=== PATIENT | female | born 2000 | race Native Hawaiian/Other Pacific Islander ===

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

== ENCOUNTER → 2022-10-31 | Outpatient (CLI) | payer MEDICAID ==
--- NOTE | 2022-10-31 14:54 | US ---
EXAMINATION TYPE: US OB anatomy transabd DATE OF EXAM: 10/31/2022 COMPARISON: NONE CLINICAL INDICATION: Female, 22 years old with history of O36.62X0 LARGE FOR DATES; TECHNIQUE: Transabdominal (TA) EXAM MEASUREMENTS: GESTATIONAL AGE / DATING Physician Established: (20 weeks/6 days) EDC: 03/14/2023 Dates by LMP: Unknown Dates by First Scan: No previous here Dates by Current Scan for: (20 weeks/4 days) EDC: 03/16/2023 SURVEY IUP: Single PLACENTA: Anterior PREVIA: No previa VITALY: 14.5 cm Normal CERVICAL LENGTH (transabdominal: norm > 3.0cm): 3.2 cm BIOMETRY PRESENTATION: Breech LIE: Longitudinal BPD: 4.7 cm 20 weeks / 2 days HC: 17.7 cm 20 weeks / 2 days AC: 15.7 cm 20 weeks / 6 days FL: 3.3 cm 20 weeks / 3 days ESTIMATED WEIGHT IN GRAMS: 361 grams ESTIMATED WEIGHT IN LBS/OZ: 0 lbs. 13 oz. WEIGHT PERCENTAGE BASED ON ESTABLISHED DATE: 29 % HC/AC: 1.13 Normal FL/AC: 21% HEART RATE: 142 bpm RHYTHM: Normal ANATOMY SEEN (within normal limits): * Lateral Vent (< 1 cm) 0.7 cm * Cisterna Magna (< 1.1 cm) 0.6 cm * Nuchal Fold (< 0.6 cm) 0.3 cm * Cerebellum (varies with age) 2.2 cm Choroid Plexus (bilateral) Midline Falx Cavus Septi Pellucidi Outflow tracts: LVOT/RVOT Stomach Situs Nose / Lips Diaphragm Kidneys (bilateral) Bladder Cord Insert Arms (bilateral) Legs (bilateral) ANATOMY SEEN (does not appear within normal limits): Three Vessel Cord - appears to be a 2 vessel cord (1 vein and 1 artery) ANATOMY NOT SEEN: due to position - patient being scheduled for OB callback Four Chamber Heart Longitudinal Spine Transverse Spine Single live intrauterine gestation. No abnormal cervical thinning. Breech presentation noted currentl y. No placenta previa. Measured amniotic fluid index within normal limits. biometry measurement s congruent and within normal limits. Detailed anatomical survey shows no suspicious abnormality during real-time scanning. Some areas are suboptimally evaluated as detailed above. IMPRESSION: As above.
== END | disposition home or self-care (01) ==
LOC: RADUSWWP 12:02
PROVIDERS: ATTEND Obstetrics & Gynecology
DX: O36.62X0 Maternal care for excessive fetal growth, second trimester, not applicable or unspecified (principal); Z3A.20 20 weeks gestation of pregnancy
CPT/HCPCS: 76811

== ENCOUNTER → 2022-11-21 | Outpatient (CLI) | payer MEDICAID ==
--- NOTE | 2022-11-21 07:56 | US ---
EXAMINATION TYPE: US OB Call Back DATE OF EXAM: 11/21/2022 COMPARISON: Prior ultrasound October 31, 2022 CLINICAL INDICATION: Female, 22 years old with history of OB CALL BACK; GESTATIONAL AGE / DATING Dates by Initial Survey Scan: (23 weeks/2 days) EDC: 03/14/2023 HEART RATE: 144 bpm RHYTHM: Normal ANATOMY SEEN (second anatomic survey look): Four Chamber Heart Outflow tracts:? LVOT Two Vessel Cord Longitudinal Spine Transverse Spine 4 chamber heart and spine seen on today's exam. 2 vessel cord redemonstrated again. Single live intrauterine gestation redemonstrated. There is successful visualization of above anatomi beth structures which appeared within normal limits not seen on prior. 2 vessel cord once again noted. IMPRESSION: There is 2 vessel umbilical cord redemonstrated. Other findings as above.
== END | disposition home or self-care (01) ==
LOC: RADUSWWP 07:03
PROVIDERS: ATTEND Obstetrics & Gynecology
DX: Z53.9 Procedure and treatment not carried out, unspecified reason (principal)

== ENCOUNTER → 2022-12-17 | Outpatient (CLI) | payer MEDICAID ==
[2022-12-17 14:59] LABS: HCT 38.4 % (37.2-46.3); HGB 12.2 d/dL (12.0-15.0); MCHC 31.8 d/dL (32.0-37.0); MCV 88.3 FL (80.0-97.0); Mean Platelet Volume 12.9 FL (9.5-12.2); NRBC Per 100 WBC 0 X 10*3/uL (0.00-0.01); Platelet Count 250 X 10*3/uL (140-440); RBC 4.35 X 10*6/uL (4.10-5.20); RDW 13.3 % (11.5-14.5); WBC 10.69 X 10*3/uL (4.50-10.00)
== END | disposition home or self-care (01) ==
LOC: LABWHC1 07:03
PROVIDERS: ATTEND Obstetrics & Gynecology
DX: Z34.82 Encounter for supervision of other normal pregnancy, second trimester (principal); Z3A.00 Weeks of gestation of pregnancy not specified
CPT/HCPCS: 36415; 82950; 85027

== ENCOUNTER → 2023-02-04 | Outpatient (CLI) | payer MEDICAID, OTHER ==
--- NOTE | 2023-02-04 10:49 | US ---
EXAMINATION TYPE: US OB BPP wo non-stress DATE OF EXAM: 02/04/2023 COMPARISON: NONE CLINICAL INDICATION: Female, 22 years old with history of [id number] SUPERVISION OF OTHER HIGH RISK PREGN ANCIES,; 2 vessel cord TECHNIQUE: Transabdominal (TA). Scoring by the lodging facilities attendant during real-time assessment. FINDINGS: BPP PARAMETERS: PRESENTATION: Vertex LIE: Longitudinal?? HEART RATE: 155 bpm RHYTHM: Normal VITALY: 15.9 DIAPHRAGM IMAGED: yes BPP SCORIN. Breathin (1 episode of breathing of 30 second duration in 30 minutes of scanning time) 2. Movement: 2 (at least 3 discrete body movements in 30 minutes) 3. Tone: 2 (1 episode of active flexion/extension of limb) 4. VITALY: 2 (VITALY index > 5cm) CITY COUNCIL MEMBER NOTES: incidental finding: pericardial effusion measuring up to 0.3cm IMPRESSION: TOTAL SCORE: 8 / 8
== END | disposition home or self-care (01) ==
LOC: RADUSWWP 10:14
PROVIDERS: ATTEND Obstetrics & Gynecology
DX: O09.899 Supervision of other high risk pregnancies, unspecified trimester (principal)
CPT/HCPCS: 76819

== ENCOUNTER → 2023-02-09 | Outpatient (CLI) | payer MEDICAID ==
--- NOTE | 2023-02-09 12:08 | US ---
EXAMINATION TYPE: US OB BPP wo non-stress DATE OF EXAM: 02/09/2023 COMPARISON: CLINICAL INDICATION: Female, 22 years old with history of [id number]; 2 vessel cord TECHNIQUE: Transabdominal (TA). Scoring by the cryptologic linguist during real-time assessment. FINDINGS: BPP PARAMETERS: PRESENTATION: Vertex LIE: Longitudinal?? HEART RATE: 160 bpm RHYTHM: Normal VITALY: 18.6 DIAPHRAGM IMAGED: wnl BPP SCORIN. Breathin (1 episode of breathing of 30 second duration in 30 minutes of scanning time) 2. Movement: 2 (at least 3 discrete body movements in 30 minutes) 3. Tone: 2 (1 episode of active flexion/extension of limb) 4. VITALY: 2 (VITALY index > 5cm) PRINCIPAL ARCHITECT NOTES: trace amount of fluid again seen in pericardial space, does not appear as p rominent on today's exam IMPRESSION: TOTAL SCORE: 8 / 8
== END | disposition home or self-care (01) ==
LOC: RADUSWWP 10:05
PROVIDERS: ATTEND Obstetrics & Gynecology
DX: O09.899 Supervision of other high risk pregnancies, unspecified trimester (principal)
CPT/HCPCS: 76819

== ENCOUNTER 2023-02-14 21:44 | Inpatient (IN) | payer MEDICAID, OTHER ==
[2023-02-14] MEDS: LACTATED RINGERS 1,000 ML IV SCH (22:51)
[2023-02-14] MEDS ORDERED: LIDOCAINE 0.5% (PF) 5 MG/ML (50 ML SDV) SQ PRN (23:09)
[2023-02-14] MEDS ORDERED: miSOPROStoL 200 MCG TAB PO PRN (23:09)
[2023-02-14] MEDS ORDERED: TRANEXAMIC 1,000 MG/100ML-NACL 1,000 MG in EMPTY BAG 1 BAG IV PRN (23:09)
[2023-02-14] MEDS ORDERED: TERBUTALINE 1 MG/ML VIAL SQ PRN (23:09)
[2023-02-14] MEDS ORDERED: METHYLERGONOVINE 0.2 MG/ML 1 ML AMP IM PRN (23:09)
[2023-02-14] MEDS ORDERED: OXYTOCIN 10 UNIT/ML 1 ML VIAL IM PRN (23:09)
[2023-02-14] MEDS ORDERED: PENICILLIN G POTASSIUM 5,000,000 UNIT in DEXTROSE 5% IN WATER 100 ML IVPB STA ×2 (23:09)
[2023-02-14] MEDS ORDERED: CARBOPROST TROMETHAMINE 250 MCG/ML 1 ML AMP IM PRN (23:09)
[2023-02-14] MEDS ORDERED: OXYTOCIN 30 UNITS/500 ML NS 30 UNIT in SALINE 1 500ML.BAG IV SCH (23:15)
[2023-02-14 23:40] LABS: Basophils % (A) 0 %; Eosinophils # (A) 0.1 k/uL (0-0.7); Eosinophils % (A) 1 %; HCT 36.4 % (34.0-46.0); HGB 12.3 gm/dL (11.4-16.0); Lymphocytes # (A) 2.6 k/uL (1.0-4.8); Lymphocytes % (A) 21 %; MCH 29.1 pg (25.0-35.0); MCHC 33.7 g/dL (31.0-37.0); MCV 86.3 fL (80.0-100.0); Mean Platelet Volume 13.5; Monocytes # (A) 0.6 k/uL (0-1.0); Monocytes % (A) 4 %; Neutrophils % (A) 73 %; Platelet Count 197 k/uL (150-450); RBC 4.22 m/uL (3.80-5.40); RDW 14.6 % (11.5-15.5); WBC 12.4 k/uL (3.8-10.6)
[2023-02-14 23:54] LABS: Glucose,Whole Blood 149 mg/dL (70-110)
[2023-02-15] MEDS: PENICILLIN G POTASSIUM 2,500,000 UNIT in DEXTROSE 5% IN WATER 100 ML IVPB SCH ×4 (03:55→07:59)
[2023-02-15] MEDS ORDERED: fentaNYL (PF) 50 MCG/ML 5 ML AMP ONE (04:37)
[2023-02-15] MEDS ORDERED: SODIUM CHLORIDE 0.9% 100 ML BAG ONE (04:37)
[2023-02-15] MEDS ORDERED: ROPIVACAINE 5 MG/ML 20 ML AMPULE ONE (04:37)
[2023-02-15] MEDS: LACTATED RINGERS 1,000 ML IV SCH (05:06)
--- NOTE | 2023-02-15 08:47 | P.MSEPDOC ---
Presenting Problems - Arrival Data Date of Arrival on Unit: 02/14/23 Time of Arrival on Unit: 21:45 Mode of Transport: Ambulatory - Complaint OB-Reason for Admission/Chief Complaint: Rule Out SROM Comment: 2044 for clear fluid Medical History - Information : 2 Para: 1 Term: 1 : 0 Abortions: Spontaneous or Elective: 0 Number of Living Children: 1 - Gestational Age Gestational Age by CORINNA (wks/days): 35 Weeks and 5 Days - History Complications: Other Comment: 2 vessel cord Review of Systems - Review of Systems Constitutional: No problems Breast: No problems ENT: No problems Cardiovascular: No problems Respiratory: No problems Gastrointestinal: No problems Genitourinary: No problems Musculoskeletal: No problems Neurological: No problems Skin: No problems Vital Signs - Temperature Temperature: 97.8 F Temperature Source: Temporal Artery Scan - Pulse Pulse Oximetery Pulse Rate: 111 Pulse Assessment Method: Pulse Oximetry - Respirations Respiratory Rate: 18 Oxygen Delivery Method: Room Air O2 Sat by Pulse Oximetry: 97 - Blood Pressure Right Arm Blood Pressure: 132/80 Blood Pressure Mean: 97 Blood Pressure Source: Automatic Cuff Medical Screen Scoring - Cervical Exam Dilation (cm): 1.5 Effacement (%): 80 Station: -3 Membranes: Ruptured - Uterine Contractions Intensity: Mild Resting: Soft to palpation - Assessment - Baby A Baseline FHR: 130 Heart Rate - NICHD Category: Category I (Normal) NST: Reactive Physician Notification - Physician Notified Physician Notified Date: 02/14/23 Physician Notified Time: 23:08 Physician: Yanely Coronel New Order Received: Yes - Notification Comment Comment: Admit for routine labor management Maternal Triage Index - Maternal Triage Index Presenting for scheduled procedure w/no complaint: No - Stat/Priority 1 Stat Priority 1: No - Urgent/Priority 2 Urgent Priority 2: No - Prompt/Priority 3 Prompt Priority 3: Yes Criteria Met for Priority 3: Pt is a with CORINNA 03/16/23 here at 35.5 weeks of gestation with c/o ROM at 2044 for clear fluid. Pt reports a 2 vessel cord but denies any other complications with the . Disposition - Disposition OB Disposition: Admit I agree with the RN Medical Screening Exam: Yes Case reviewed; plan agreed upon as documented in EMR&OBIX.: Yes Diagnosis: ENCOUNTER FOR FULL-TERM UNCOMPLICATED DELIVERY
--- NOTE | 2023-02-15 10:23 | P.HPOB ---
History of Present Illness H&P Date: 02/15/23 Chief Complaint: SROM 22 year old presents at 35 weeks and 6 days with spontaneous rupture membranes at 2044. She presented to triage her cervix is 1-2 cm dilated, 80% effaced, -2 station. She is not jes. heart tones 135 with moderate variability and reactive. Review of Systems All systems: negative Constitutional: Denies chills, Denies fever Eyes: denies blurred vision, denies pain Ears, nose, mouth and throat: Denies headache, Denies sore throat Cardiovascular: Denies chest pain, Denies shortness of breath Respiratory: Denies cough Gastrointestinal: Denies abdominal pain, Denies diarrhea, Denies nausea, Denies vomiting Genitourinary: Denies dysuria, Denies hematuria Musculoskeletal: Denies myalgias Integumentary: Denies pruritus, Denies rash Neurological: Denies numbness, Denies weakness Psychiatric: Denies anxiety, Denies depression Endocrine: Denies fatigue, Denies weight change Past Medical History Past Medical History: No Reported History Additional Past Medical History / Comment(s): PCOS History of Any Multi-Drug Resistant Organisms: None Reported Past Surgical History: No Surgical Hx Reported Past Anesthesia/Blood Transfusion Reactions: No Reported Reaction Past Psychological History: No Psychological Hx Reported Smoking Status: Vaper Past Alcohol Use History: None Reported Past Drug Use History: None Reported Medications and Allergies Home Medications Medication Instructions Recorded Confirmed Type Vit No.179/Iron/Folic 1 each PO 02/14/23 History [ Tablet] Allergies Allergy/AdvReac Type Severity Reaction Status Date / Time No Known Allergies Allergy Verified 02/14/23 21:58 Exam Osteopathic Statement: *. No significant issues noted on an osteopathic structural exam other than those noted in the History and Physical/Consult. Vital Signs Temp Pulse Resp BP Pulse Ox 02/15/23 08:47 97.8 F 111 H 18 132/80 97 02/14/23 23:13 97.8 F 111 H 18 132/80 97 Intake and Output 02/14/23 02/15/23 02/15/23 22:59 06:59 14:59 Other: # Voids 2 Weight 97.522 kg 97.522 kg Heart: Regular rate and rhythm Lungs: Clear to auscultation bilaterally Abdomen: Soft, nontender Extremities: Negative Homans sign Results Result Diagrams: 02/14/23 22:55 Abnormal Lab Results - Last 24 Hours (Table) 02/14/23 02/14/23 Range/Units 22:55 23:52 WBC 12.4 H (3.8-10.6) k/uL Neutrophils # 9.0 H (1.3-7.7) k/uL POC Glucose (mg/dL) 149 H (70-110) mg/dL Assessment and Plan (1) premature rupture of membranes Current Visit: Yes Status: Acute Code(s): O42.919 - PRETRM IVAN ROM, UNSP TIME BETW RUPT AND ONST LABR, UNSP TRI SNOMED Code(s): 849698755 Plan: 1. IV antibiotics 2. Pitocin augmentation if necessary 3. Anticipate normal vaginal delivery
[2023-02-15] MEDS ORDERED: ZOLPIDEM 5 MG TAB PO PRN (10:25)
[2023-02-15] MEDS ORDERED: BENZOCAINE/MENTHOL SPRAY 1 GM/SPRAY AEROSOL TOPICAL PRN (10:25)
[2023-02-15] MEDS ORDERED: diphenhydrAMINE 50 MG/ML 1 ML VIAL IVP PRN ×2 (10:25)
[2023-02-15] MEDS ORDERED: diphenhydrAMINE 50 MG CAP PO PRN (10:25)
[2023-02-15] MEDS ORDERED: HYDROCORTISONE 2.5% RECTAL CREAM 30 GM TUBE RECTAL PRN (10:25)
[2023-02-15] MEDS ORDERED: SIMETHICONE 80 MG CHEWABLE PO PRN (10:25)
[2023-02-15] MEDS ORDERED: ACETAMINOPHEN TAB 325 MG TAB PO PRN (10:25)
[2023-02-15] MEDS ORDERED: LANOLIN CREAM 5 GM TUBE TOPICAL PRN (10:25)
[2023-02-15] MEDS ORDERED: diphenhydrAMINE 25 MG CAP PO PRN (10:25)
--- NOTE | 2023-02-15 10:25 | P.PROBDLV ---
Vaginal Delivery Note - . Vaginal Delivery Note: 22 year old presents at 35 weeks and 6 days with spontaneous rupture membranes at 2044. She presented to triage her cervix is 1-2 cm dilated, 80% effaced, -2 station. She is not jes. heart tones 135 with moderate variability and reactive. Patient was admitted to [facility] and did start having contractions. An 8 and the morning when she was still 9 cm dilated did start some Pitocin augmentation because her contractions were 5-7 minutes apart. Her cervix was completely dilated at 10:04 AM. She pushed, and a viable male over intact perineum under epidural anesthesia at 1013. Head delivered OA, anterior shoulder delivered gentle downward guidance. The posterior shoulder and rest of body. Nose and mouth bulb suctioned, cord clamped and cut, infant placed mother's abdomen. Apgars 8, 9, weight pending. Placenta delivered spontaneously, intact with two-vessel cord at 10:15 AM. Vagina, cervix, perineum inspected. No lacerations noted. Estimated blood loss 100 mL. Mother and baby in stable condition.
[2023-02-15] MEDS ORDERED: OXYTOCIN 30 UNITS/500 ML NS 30 UNIT in SALINE 1 500ML.BAG IV SCH (10:30)
[2023-02-15] MEDS: SENNOSIDES-DOCUSATE SODIUM 1 EACH TAB PO SCH (22:14)
[2023-02-15] MEDS: IBUPROFEN 600 MG TAB PO PRN (23:53)
[2023-02-16 06:59] LABS: Basophils % (A) 0 %; Eosinophils # (A) 0.1 k/uL (0-0.7); Eosinophils % (A) 1 %; HGB 12.6 gm/dL (11.4-16.0); Lymphocytes % (A) 23 %; MCH 29.7 pg (25.0-35.0); MCHC 33.9 g/dL (31.0-37.0); MCV 87.6 fL (80.0-100.0); Mean Platelet Volume 12.8; Monocytes # (A) 0.6 k/uL (0-1.0); Monocytes % (A) 5 %; Neutrophils % (A) 69 %; Platelet Count 174 k/uL (150-450); RBC 4.23 m/uL (3.80-5.40); RDW 14.8 % (11.5-15.5)
[2023-02-16] MEDS: IBUPROFEN 600 MG TAB PO PRN ×3 (08:43→20:17)
[2023-02-16] MEDS: SENNOSIDES-DOCUSATE SODIUM 1 EACH TAB PO SCH ×2 (08:43→20:18)
[2023-02-16 09:06] LABS: Large Platelets Present
[2023-02-16 09:07] LABS: RBC Morphology Normal
[2023-02-17] MEDS: IBUPROFEN 600 MG TAB PO PRN (07:02)
[2023-02-17 09:13] VITALS: BP 107/70; PULSE 97; RESP 18; TEMP 98.1
[2023-02-17] MEDS: SENNOSIDES-DOCUSATE SODIUM 1 EACH TAB PO SCH (09:13)
--- NOTE | 2023-02-17 12:23 | P.DS ---
Providers Date of admission: 02/14/23 22:20 Expected date of discharge: 02/17/23 Attending physician: Yanely Coronel Primary care physician: Stated None - Discharge Diagnosis(es) (1) premature rupture of membranes Current Visit: Yes Status: Resolved (2) Normal vaginal delivery Current Visit: Yes Status: Acute Hospital Course: Patient presented at 35 weeks and 6 days' was spent has rupture membranes. She underwent a normal vaginal delivery with Pitocin augmentation. Post course is been uneventful. She denies nausea, vomiting, chest pain, shortness of breath or calf pain. She will be discharged home day #2 in stable condition to follow-up with me in 6 weeks. Plan - Discharge Summary New Discharge Prescriptions: New Ibuprofen [Motrin] 600 mg PO Q6HR PRN #30 tab PRN Reason: Mild Pain Or Fever >= 100.5 No Action Vit No.179/Iron/Folic [ Tablet] 1 each PO Discharge Medication List Vit No.179/Iron/Folic [ Tablet] 1 each PO 02/14/23 [History] Ibuprofen [Motrin] 600 mg PO Q6HR PRN #30 tab 02/17/23 [Rx] Follow up Appointment(s)/Referral(s): Yanely Coronel DO [Doctor of Osteopathic Medicine] - 6 Weeks (PP 03/30/2023 @10:45) Discharge Disposition: HOME SELF-CARE
== END 2023-02-17 15:55 | disposition home or self-care (01) | DRG 807 ==
LOC: FBPOP 21:44 → 4FBP 22:20
PROVIDERS: ADMIT Obstetrics & Gynecology; ATTEND Obstetrics & Gynecology
PROC: 10E0XZZ Delivery of Products of Conception, External Approach (ICD-10-PCS; principal; 2023-02-15)
DX: O42.013 Preterm premature rupture of membranes, onset of labor within 24 hours of rupture, third trimester (principal); O99.284 Endocrine, nutritional and metabolic diseases complicating childbirth; E28.2 Polycystic ovarian syndrome; O99.334 Smoking (tobacco) complicating childbirth; F17.290 Nicotine dependence, other tobacco product, uncomplicated; O69.89X0 Labor and delivery complicated by other cord complications, not applicable or unspecified; Z3A.35 35 weeks gestation of pregnancy; Z37.0 Single live birth
CPT/HCPCS: 59025; 84112; 85025; 86850; 86900; 86901; 87340; 99213

== ENCOUNTER → 2023-09-10 | Outpatient (CLI) | payer OTHER ==
--- NOTE | 2023-09-10 12:38 | US ---
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 IMPRESSION: Cardiomegaly with underlying glandular heterogeneity. No discrete nodule present. 2017 ACR TI-RADS LEVEL: *Highest TI-RADS level nodule reported
[2023-09-10 23:20] LABS: T4, Free (Free Thyroxine) 0.75 ng/dL (0.80-1.80)
== END | disposition home or self-care (01) ==
LOC: RADUSWWP 12:16
PROVIDERS: ATTEND Internal Medicine Endocrinology, Diabetes & Metabolism
DX: E05.00 Thyrotoxicosis with diffuse goiter without thyrotoxic crisis or storm (principal); I51.7 Cardiomegaly
CPT/HCPCS: 36415; 76536; 84439; 84443; 84445; 84480

== ENCOUNTER → 2023-10-13 | Outpatient (CLI) | payer OTHER ==
--- NOTE | 2023-10-13 12:47 | NM ---
EXAMINATION TYPE: NM thyroid image only DATE OF EXAM: 10/13/2023 COMPARISON: Ultrasound 09/10/2023 CLINICAL INDICATION: Female, 23 years old with history of E05.00 thyrotoxicity; TECHNIQUE: After the intravenous administration of 9.82 mCi Tc 99m Sodium Pertechnetate. FINDINGS: Symmetric uptake throughout the thyroid bilaterally with no definite hot or cold defect. Findings are concordant with the recent ultrasound. IMPRESSION: Symmetric uptake throughout the thyroid bilaterally with no definite hot or cold defect. Findings are concordant with the recent ultrasound.
== END | disposition home or self-care (01) ==
LOC: RADNMMAIN 10:55
PROVIDERS: ATTEND Internal Medicine Endocrinology, Diabetes & Metabolism
DX: E05.00 Thyrotoxicosis with diffuse goiter without thyrotoxic crisis or storm (principal)
CPT/HCPCS: 78013; A9512

== ENCOUNTER → 2023-11-17 | Outpatient (CLI) | payer OTHER ==
[2023-11-17 19:31] LABS: T4, Free (Free Thyroxine) 1.09 ng/dL (0.80-1.80)
== END | disposition home or self-care (01) ==
LOC: LABWHC1 12:20
PROVIDERS: ATTEND Internal Medicine Endocrinology, Diabetes & Metabolism
DX: E03.8 Other specified hypothyroidism (principal)
CPT/HCPCS: 36415; 84439; 84443

== ENCOUNTER → 2024-04-01 | Outpatient (CLI) | payer OTHER ==
[2024-04-01 15:28] LABS: Basophils # (A) 0.04 X 10*3/uL (0.00-0.10); Basophils % (A) 0.6 %; Eosinophils # (A) 0.08 X 10*3/uL (0.04-0.35); Eosinophils % (A) 1.2 %; HCT 42.7 % (37.2-46.3); Lymphocytes # (A) 2.48 X 10*3/uL (0.90-5.00); Lymphocytes % (A) 36.6 %; MCH 29.7 pg (27.0-32.0); MCHC 32.8 g/dL (32.0-37.0); MCV 90.5 FL (80.0-97.0); Mean Platelet Volume 12.2 FL (9.5-12.2); Monocytes # (A) 0.45 X 10*3/uL (0.20-1.00); Monocytes % (A) 6.6 %; NRBC Per 100 WBC 0.02 X 10*3/uL (0.00-0.01); Neutrophils # (A) 3.71 X 10*3/uL (1.80-7.70); Neutrophils % (A) 54.7 %; Platelet Count 322 X 10*3/uL (140-440); RBC 4.72 X 10*6/uL (4.10-5.20); RDW 13.4 % (11.5-14.5); WBC 6.78 X 10*3/uL (4.50-10.00)
[2024-04-01 16:04] LABS: ALT 20 U/L (8-44); AST 16 U/L (13-35); Albumin 4.7 g/dL (3.8-4.9); Albumin/Globulin Ratio 2.04 Ratio (1.60-3.17); Alkaline Phosphatase 96 U/L (41-126); BUN/Creat Ratio 24.14 Ratio (12.00-20.00); Blood Urea Nitrogen 16.9 mg/dL (9.0-27.0); Calcium 9.9 mg/dL (8.7-10.3); Carbon Dioxide 25.4 mmol/L (21.6-31.8); Chloride 107 mmol/L (96-109); Globulin 2.3 g/dL (1.6-3.3); Glucose 94 mg/dL (70-110); LDL Cholesterol,Calculated 115.4 mg/dL (0.0-131.0); Potassium 4.4 mmol/L (3.5-5.5); Sodium 143 mmol/L (135-145); Total Bilirubin 0.4 mg/dL (0.3-1.2); VLDL Calculation 19.16 mg/dL (5.00-40.00)
== END | disposition home or self-care (01) ==
LOC: LABWHC1 10:21
PROVIDERS: ATTEND Nurse Practitioner Family
DX: Z00.00 Encounter for general adult medical examination without abnormal findings (principal)
CPT/HCPCS: 36415; 80053; 80061; 82306; 83036; 84439; 84443; 85025

== ENCOUNTER → 2024-09-20 | Outpatient (CLI) | payer OTHER ==
--- NOTE | 2024-09-20 12:37 | CA ---
Transthoracic Echo Report Name: Demian Garcia Age: 24 Gender: F : 2000 Exam Date: 09/20/2024 11:22 Exam Location: [facility] Ht (in): 64 Wt (lb): 190 Ordering Physician: Sadei Grier MD Attending/Referring Phys: Rheumatology Nurse Dee Loja RDCS Procedure CPT: Indications: R06.02 Shortness of breath on exertion Cardiac Hx: Technical Quality: Good Contrast 1: Total Dose (mL): Contrast 2: Total Dose (mL): MEASUREMENTS (Male / Female) Normal Values 2D ECHO LV Diastolic Diameter PLAX 4.9 cm 4.2 - 5.9 / 3.9 - 5.3 cm LV Systolic Diameter PLAX 3.1 cm IVS Diastolic Thickness 0.7 cm 0.6 - 1.0 / 0.6 - 0.9 cm LVPW Diastolic Thickness 0.7 cm 0.6 - 1.0 / 0.6 - 0.9 cm LV Relative Wall Thickness 0.3 RV Internal Dim ED PLAX 3.4 cm LVOT Diameter 1.9 cm LA Systolic Diameter LX 3.0 cm 3.0 - 4.0 / 2.7 - 3.8 cm LV Diastolic Volume MOD BP 107.8 cm??? 67 - 155 / 56 - 104 cm??? LV Systolic Volume MOD BP 47.1 cm??? - 58 / 19 - 49 cm??? LV Ejection Fraction MOD BP 56.3 % >= 55 % LV Cardiac Index MOD BP 2481.4 cm???/min???m??? LV Diastolic Volume MOD 4C 112.1 cm??? LV Systolic Volume MOD 4C 46.7 cm??? LV Ejection Fraction MOD 4C 58.3 % LV Cardiac Index MOD 4C 2673.2 cm???/min???m??? LV Diastolic Length 4C 8.3 cm LV Systolic Length 4C 6.9 cm LV Diastolic Volume MOD 2C 102.7 cm??? LV Systolic Volume MOD 2C 48.2 cm??? LV Ejection Fraction MOD 2C 53.0 % LV Cardiac Index MOD 2C 2226.8 cm???/min???m??? LV Diastolic Length 2C 8.4 cm LV Systolic Length 2C 6.9 cm LA Volume 62.7 cm??? 18 - 58 / 22 - 52 cm??? LA Volume Index 31.3 cm???/m??? 16 - 28 cm???/m??? DOPPLER MV Area PHT 3.4 cm??? Mitral E Point Velocity 59.0 cm/s Mitral A Point Velocity 44.5 cm/s Mitral E to A Ratio 1.3 MV Deceleration Time 225.4 ms TR Peak Velocity 171.2 cm/s TR Peak Gradient 11.7 mmHg FINDINGS Left Ventricle Left ventricular ejection fraction is estimated at 55-60%. Normal Left ventricular size, wall thickness, systolic function with no obvious regional wall motion abnormalities. Normal left ventricular wall motion. Right Ventricle Normal right ventricular size and function. Right ventricular systolic pressure within normal limits. Right Atrium Normal right atrial size. Left Atrium Mildly increased left atrial volume. Mitral Valve Structurally normal mitral valve. No mitral stenosis. No mitral regurgitation. Aortic Valve Trileaflet aortic valve. No aortic stenosis. No aortic regurgitation. Tricuspid Valve Structurally normal tricuspid valve. No tricuspid stenosis. Trace tricuspid regurgitation. Pulmonic Valve Structurally normal pulmonic valve. No pulmonic stenosis. No pulmonic regurgitation. Pericardium No pericardial effusion. Aorta Normal size aortic root and proximal ascending aorta. CONCLUSIONS Normal LV size and systolic function. No significant abnormality on the Doppler exam. No pericardial effusion Previewed by: Dr. Camille Almeida MD (Electronically Signed) Final Date: 20 September 2024 12:37
== END | disposition home or self-care (01) ==
LOC: RADECHMAIN 11:09
PROVIDERS: ATTEND Internal Medicine
DX: I07.1 Rheumatic tricuspid insufficiency (principal); R06.02 Shortness of breath
CPT/HCPCS: 93306